=== PATIENT | female | born 1990 | race Hispanic/Latino ===

== ENCOUNTER 2018-07-07 15:15 | Outpatient (CLI) | payer OTHER ==
--- NOTE | 2018-07-07 16:37 | ULT ---
OB ULTRASOUND: HISTORY: anatomy. FINDINGS: A single viable intrauterine . Gestational age by ultrasound is 20 weeks 6 days. BPD: 20 weeks 6 days. HC: 20 weeks 5 days. AC: 21 weeks 0 days. FL: 20 weeks 4 days. PLACENTA: Posterior. PRESENTATION: Transverse with head to maternal left. AMNIOTIC FLUID: Adequate. BASSAM recorded at 13.42 cm. HEART RATE: 147 beats per minute. anatomy evaluated includes intracranial contents, four-chamber heart, stomach, kidneys, cord in sertion, bladder, spine, face, extremities, and three-vessel cord. No anatomic abnormality identifie d. CERVICAL LENGTH: 6.9 cm. IMPRESSION: A 30-erzy-7-day gestation abnormality ultrasound measurement. No abnormality identified. POS: KARTIK
== END 2018-07-07 15:16 | disposition home or self-care (01) ==
LOC: BICULT 15:15
PROVIDERS: ATTEND Family Medicine
DX: Z34.82 Encounter for supervision of other normal pregnancy, second trimester (principal); Z3A.20 20 weeks gestation of pregnancy
CPT/HCPCS: 76805

== ENCOUNTER 2018-11-07 14:29 | Inpatient (IN) | payer OTHER ==
[2018-11-07] MEDS ORDERED: Carboprost 250 MCG/ML AMP IM PRN (14:53)
[2018-11-07] MEDS ORDERED: Diphenoxylate HCl/Atropine Tablet PO PRN (14:53)
[2018-11-07] MEDS ORDERED: Butorphanol Tartrate 1 MG/ML VIAL SLOW IVP PRN (14:53)
[2018-11-07] MEDS ORDERED: Methylergonovine 0.2 MG/ML VIAL IM PRN (14:53)
[2018-11-07] MEDS ORDERED: Meperidine HCl/PF 25 MG/ML VIAL IM/IV PRN (14:53)
[2018-11-07] MEDS ORDERED: Lidocaine 1% (PF) 30 ML VIAL SC PRN (14:53)
[2018-11-07] MEDS ORDERED: Ibuprofen 800 MG TAB PO PRN (14:53)
[2018-11-07] MEDS ORDERED: HYDROcodone/Acetaminophen 5/325 mg Tablet PO PRN ×3 (14:53→21:25)
[2018-11-07] MEDS ORDERED: Promethazine HCl 25 MG/ML VIAL IM PRN ×2 (14:53→21:25)
[2018-11-07] MEDS ORDERED: Ondansetron PF 4 MG/2 ML Vial IVP PRN ×2 (14:53→21:25)
[2018-11-07] MEDS ORDERED: Misoprostol 200 MCG TAB PR PRN (14:53)
[2018-11-07] MEDS ORDERED: Lactated Ringer's 1,000 ML IV SCH (15:00)
[2018-11-07] MEDS ORDERED: NS w/ Oxytocin 10 units 500 ML IV SCH ×2 (15:00)
[2018-11-07 15:29] LABS: Hemoglobin 11.6 g/dL (12.0-16.0); Mean Corpuscular Hemoglobin 28.5 pg (27.0-31.0); Mean Corpuscular Volume 83.7 fL (78.0-98.0); Mean Platelet Volume 8.4 fL (7.4-10.4); Platelet Count 288 thou/uL (130-400); Red Blood Cell (RBC) Count 4.09 mill/uL (4.20-5.40); White Blood Cell (WBC) Count 8.2 thou/uL (4.8-10.8)
[2018-11-07 15:34] VITALS: BMI 25.2
[2018-11-07 16:09] LABS: Syphilis Antibody Nonreactive (Nonreactive); Syphilis Antibody Index 0.05 S/CO (<1.00 Non-Reactive)
[2018-11-07 16:10] LABS: HBSAg Index 0.31 S/CO (0-0.99); Hep B Surf Ag Non-Reactive S/CO (NonReactive)
[2018-11-07] MEDS: NS / Oxytocin 40 units/1000ml 1,000 ML IV PRN ×2 (19:20→21:25)
[2018-11-07] MEDS ORDERED: NS / Oxytocin 40 units/1000ml 1,000 ML IV SCH (21:25)
[2018-11-07] MEDS ORDERED: Bisacodyl 10 MG SUPP PR PRN (21:25)
[2018-11-07] MEDS ORDERED: Benzocaine-Menthol 82.5 ML CAN TOP PRN (21:25)
[2018-11-07] MEDS ORDERED: Milk Of Magnesia 30 ML UDCUP PO PRN (21:25)
[2018-11-07] MEDS ORDERED: Docusate Calcium (SURFAK) 240 MG CAP PO SCH (21:30)
[2018-11-08] MEDS ORDERED: Adacel (T-DAP) 0.5 ML SYRINGE IM ONE (09:00)
[2018-11-08] MEDS: Ferrous Sulfate 325 MG TAB PO SCH ×2 (09:36→16:59)
[2018-11-08] MEDS: Prenatal Vitamin 1 TAB PO SCH (09:37)
[2018-11-08] MEDS: Docusate Calcium (SURFAK) 240 MG CAP PO SCH ×2 (09:37→21:18)
[2018-11-09 08:39] VITALS: BP 106/72; TEMP 98
[2018-11-09] MEDS: Ferrous Sulfate 325 MG TAB PO SCH (09:04)
[2018-11-09] MEDS: Docusate Calcium (SURFAK) 240 MG CAP PO SCH (09:11)
[2018-11-09] MEDS: Prenatal Vitamin 1 TAB PO SCH (09:12)
== END 2018-11-09 17:00 | disposition home or self-care (01) | DRG 807 ==
LOC: L&D 14:29 → 3SW 21:51
PROVIDERS: ADMIT Family Medicine; ATTEND Family Medicine
PROC: 10E0XZZ Delivery of Products of Conception, External Approach (ICD-10-PCS; principal; 2018-11-07)
PROC: 10907ZC Drainage of Amniotic Fluid, Therapeutic from Products of Conception, Via Natural or Artificial Opening (ICD-10-PCS; 2018-11-07)
DX: O80 Encounter for full-term uncomplicated delivery (principal); Z37.0 Single live birth; Z3A.38 38 weeks gestation of pregnancy
CPT/HCPCS: 36415; 85027; 86780; 86850; 86900; 86901; 87340; J2001